=== PATIENT | male | born 1985 | race Caucasian/White ===

== ENCOUNTER 2020-10-08 09:19 | Emergency (ER) | payer MEDICAID ==
[~2020-10-08] VITALS: Ht 182.9 cm; Wt 100.0 kg
[2020-10-08 09:24] VITALS: Ht 182.9 cm; Wt 100.0 kg
[2020-10-08] MEDS ORDERED: TORADOL10 MG PO (09:26)
[2020-10-08] MEDS ORDERED: TYLENOL W/CODEI1 TAB PO (09:26)
[2020-10-08 10:03] LABS: BASOPHILS 0.7 % (0-2); EOSINOPHILS 1.7 % (0-7); HEMATOCRIT 40.7 % (42.0-54.0); HEMOGLOBIN 13.5 g/dL (13.5-17.5); LYMPHOCYTES 18.8 % (15-50); MCH 29.3 pg (26.0-34.0); MCHC 33.1 g/dL (31.0-37.0); MCV 88.5 fL (80.0-100.0); MEAN PLATELET VOLUME 7.7 fL (7.4-10.4); MONOCYTES 8.1 % (2-11); NEUTROPHILS 70.7 % (40-80); PLATELET COUNT 308 10x3/uL (130-400); RDW 13.8 % (11.5-14.5); WBC 11.9 10x3/uL (4.8-10.8)
[2020-10-08 10:15] LABS: ANION GAP 15.2 mmol/L (8-16); CALCIUM 8.5 mg/dL (8.5-10.1); CARBON DIOXIDE 24.4 mmol/L (21.0-32.0); CREATININE - SERUM 1.3 mg/dL (0.6-1.3); POTASSIUM - SERUM 4.6 mmol/L (3.5-5.1)
[2020-10-08 10:23] LABS: ALBUMIN 3.7 g/dL (3.4-5.0); BILIRUBIN - TOTAL 0.55 mg/dL (0.2-1.3); PROTEIN - SERUM 7.1 g/dL (6.4-8.2)
[2020-10-08 10:54] LABS: BACTERIA FEW HPF (NONE SEEN); BILIRUBIN NEGATIVE (NEGATIVE); KETONE NEGATIVE (NEGATIVE); NITRITE NEGATIVE (NEGATIVE); SQUAMOUS EPITHELIAL 0-5 HPF (0-4); UROBILINOGEN NORMAL mg/dL (< 2); WHITE CELLS - URINE 0-5 HPF (0-1)
[2020-10-08 13:12] VITALS: BP 126/81
== END 2020-10-08 13:04 | disposition short-term general hospital (02) ==
LOC: D.ER 09:19
PROVIDERS: Emergency Medicine
DX: N13.9 Obstructive and reflux uropathy, unspecified (principal); R30.0 Dysuria